=== PATIENT | female | born 1940 | race Caucasian/White ===

== ENCOUNTER 2021-04-23 10:40 | Day surgery (SDC) | payer MEDICARE ==
[~2021-04-23] VITALS: Ht 167.6 cm; Wt 92.0 kg
[2021-04-23 11:00] VITALS: BP 157/76
[2021-04-23] MEDS ORDERED: ATEN-27 PO (11:35)
[2021-04-23] MEDS ORDERED: PANT-47 PO (11:36)
[2021-04-23] MEDS ORDERED: PARO30TA4 PO (11:38)
[2021-04-23] MEDS ORDERED: MONT-40 PO (11:38)
[2021-04-23] MEDS ORDERED: FURO-150 PO (11:39)
[2021-04-23] MEDS ORDERED: ASPI81TA96 PO (11:40)
[2021-04-23] MEDS ORDERED: LISI20TA28 PO (11:41)
[2021-04-23] MEDS ORDERED: IRON-6 PO (11:41)
[2021-04-23] MEDS ORDERED: ATOR40TA7 PO (11:42)
[2021-04-23] MEDS ORDERED: ESOM40CA49 PO (11:43)
[2021-04-23] MEDS ORDERED: CLOP75TA15 PO (11:43)
[2021-04-23] MEDS ORDERED: OMEG10006 PO (11:44)
[2021-04-23] MEDS ORDERED: CHOL500050 PO (11:47)
[2021-04-23] MEDS ORDERED: MULT-1141 PO (11:47)
[2021-04-23] MEDS ORDERED: ZOLP5TAB2 PO (11:48)
[2021-04-23] MEDS ORDERED: MIDAZolam 1 MG/ML 5ML VIAL ONE (12:46)
[2021-04-23] MEDS ORDERED: fentaNYL/PF 50MCG/1 ML 2ML syringe ONE (12:46)
[2021-04-23 13:10] VITALS: BP 151/75
[2021-04-23 13:20] VITALS: BP 142/63
[2021-04-23 13:30] VITALS: BP 137/59
[2021-04-23 13:40] VITALS: BP 135/56
== END 2021-04-23 13:45 | disposition home or self-care (01) ==
LOC: GI LAB 10:40
PROVIDERS: ATTEND Internal Medicine Gastroenterology
DX: R93.3 Abnormal findings on diagnostic imaging of other parts of digestive tract (principal); C20 Malignant neoplasm of rectum; K56.690 Other partial intestinal obstruction; I10 Essential (primary) hypertension; Z95.1 Presence of aortocoronary bypass graft; Z95.5 Presence of coronary angioplasty implant and graft; Z79.82 Long term (current) use of aspirin; Z79.899 Other long term (current) drug therapy
CPT/HCPCS: 45380; 45381; 88305; G0500; J2250; J3010; J7040; Z7512; 45335; 99152; 99153; A4620

== ENCOUNTER 2021-06-22 05:40 | Inpatient (IN) | payer BC ==
[2021-06-18 16:48] LABS: BASOPHILS % (AUTO) 0.6 % (0-1); EOSINOPHILS # (AUTO) 0.1 X10'3 (0-0.9); EOSINOPHILS % (AUTO) 2.4 % (0-6); LYMPHOCYTES # (AUTO) 2.1 X10'3 (1.1-4.8); LYMPHOCYTES % (AUTO) 34.1 % (21-51); MEAN CORPUSCULAR HEMOGLOBIN 31.7 PG (27.0-31.0); MEAN CORPUSCULAR VOLUME 93.4 FL (78-98); MEAN PLATELET VOLUME 10.2 FL (7.4-10.4); MONOCYTES # (AUTO) 0.7 X10'3 (0-0.9); MONOCYTES % (AUTO) 11.8 % (2-12); NEUTROPHILS # (AUTO) 3.1 X10'3 (1.8-7.7); NEUTROPHILS % (AUTO) 51.1 % (42-75); PRE OP HEMATOCRIT 42.2 % (35.0-45.0); PRE OP HEMOGLOBIN 14.3 g/dL (12.0-16.0); PRE OP PLATELET COUNT 246 X10'3 (140-440); RED BLOOD COUNT 4.52 X10'6 (4.20-5.60); RED CELL DISTRIBUTION WIDTH 12.8 % (11.5-14.5)
[2021-06-18 17:15] LABS: PRE OP PROTIME 10.4 SECONDS (9.0-12.0)
[2021-06-18 17:17] LABS: ALBUMIN 3.6 G/DL (3.4-5.0); ALKALINE PHOSPHATASE 82 IU/L (46-116); BLOOD UREA NITROGEN 13 MG/DL (7-18); CHLORIDE 104 MMOL/L (99-107); CREATININE 0.93 MG/DL (0.40-0.90); PRE OP ALT 50 U/L (30-65); PRE OP ANION GAP 11 (8-16); PRE OP AST 32 U/L (10-37); PRE OP BILIRUB, TOTAL 0.3 MG/DL (0.0-1.0); PRE OP GLUCOSE 92 MG/DL (70-104); PRE OP POTASSIUM 4.4 MMOL/L (3.4-5.1); PRE OP SODIUM 142 MMOL/L (135-145); TOTAL CARBON DIOXIDE 27.4 MMOL/L (24-32); TOTAL PROTEIN 7.3 G/DL (6.4-8.2); eGFR 58 ML/MIN
[2021-06-22] VITALS (25 sets, daily range): BP systolic 109–163; BP diastolic 42–76
[~2021-06-22] VITALS: Ht 170.2 cm; Wt 91.6 kg
[~2021-06-22 05:40] MED LIST: ASPI81TA96 PO; ATEN-27 PO; ATOR40TA7 PO; CHOL500050 PO; CLOP75TA15 PO; DOCUMENT DATE & TIME OF BETA-BLOCKER PO ONE; ESOM40CA49 PO; FURO-150 PO; IRON-6 PO; LISI20TA28 PO; MONT-40 PO; MULT-1141 PO; OMEG10006 PO; PARO30TA4 PO; ZOLP5TAB2 PO; albuterol 2.5 MG/3 ML nebule NEB ONE; ceFOXitin 2GM-NS 100mL ADDvant 100 ML IV ONE; famotidine 20mg tablet PO ONE
[2021-06-22] MEDS ORDERED: heparin, porcine 5000 units/ml vial SQ ONE (06:00)
[2021-06-22] MEDS ORDERED: metroNIDAZOLE-Flagyl 500mg/NS 100ml IVPB IV ONE (06:00)
[2021-06-22] MEDS ORDERED: MALTODEXTRIN/FRUCTOSE 0.68 KCAL/ML LIQUID 296ML BOTTLE PO ONE (06:00)
[2021-06-22] MEDS: ringers solution, lacted 1,000 ML IV SCH ×2 (06:35→12:40)
[2021-06-22] MEDS ORDERED: BUPIVAcaine/PF 2.5mg/ml (0.25%) 10ml vial ONE (06:52)
[2021-06-22] MEDS ORDERED: LIDOcaine 1% W/epiNEPHrine 1:100,000 20ml vial ONE (06:52)
[2021-06-22] MEDS ORDERED: povidone-iodine 10% ointment 1 APPLIC APPLIC TP ONE (06:53)
[2021-06-22] MEDS ORDERED: fentaNYL /PF 50mcg/ml 5ml ampule ONE (07:13)
[2021-06-22] MEDS ORDERED: midazolam 1 mg/ML 2ml injection ONE (07:13)
[2021-06-22] MEDS ORDERED: propofol inj 20 ML IV ONE (07:14)
[2021-06-22] MEDS ORDERED: ondansetron/PF 4mg/2ml inj ONE (07:14)
[2021-06-22] MEDS ORDERED: LIDOcaine 2% (20mg/ml) 5ml vial ONE (07:14)
[2021-06-22] MEDS ORDERED: rocuronium 10mg/ml inj IV ONE ×3 (07:14→09:40)
[2021-06-22] MEDS ORDERED: dexamethasone sod phosphate 4mg/ml inj. ONE (07:14)
[2021-06-22] MEDS ORDERED: labetalol 20mg/4ml (5mg/ml) syringe IV PRN (07:25)
[2021-06-22] MEDS ORDERED: hydrALAZINE 20mg/ml inj. IV PRN (07:25)
[2021-06-22] MEDS ORDERED: ringers solution, lacted 1,000 ML IV SCH (07:25)
[2021-06-22] MEDS ORDERED: morphine 2 MG/ML inj. syringe IV PRN (07:25)
[2021-06-22] MEDS ORDERED: fentaNYL/PF 50MCG/1 ML 2ML syringe IV PRN ×2 (07:25)
[2021-06-22] MEDS ORDERED: morphine 4 MG/ML inj SYRINge IV PRN (07:25)
[2021-06-22] MEDS ORDERED: ondansetron/PF 4mg/2ml inj IV PRN ×2 (07:25→11:15)
[2021-06-22] MEDS ORDERED: sevoflurane 250ml liquid IH ONE (07:37)
[2021-06-22] MEDS ORDERED: INDOCYANINE GREEN 25 MG/10 ML VIAL IV ONE (08:56)
[2021-06-22] MEDS ORDERED: albumin (Human) 5% 250ml 250 ML IV ONE (09:16)
[2021-06-22] MEDS ORDERED: hydrALAZINE 20mg/ml inj. IV ONE (09:27)
[2021-06-22] MEDS ORDERED: neostigmine methylsulfate 1 MG/ML 10ml vial ONE (10:50)
[2021-06-22] MEDS ORDERED: glycopyrrolate 0.2mg/ml inj ONE (10:50)
[2021-06-22] MEDS ORDERED: fentaNYL/PF 50MCG/1 ML 2ML syringe ONE (10:54)
[2021-06-22] MEDS ORDERED: CADD PCA waste documentation MC PRN (11:15)
[2021-06-22] MEDS ORDERED: naloxone 0.4 mg/ml inj IV PRN (11:15)
[2021-06-22] MEDS: potassium CL 20mEq in D5-1/2NS 1,000 ML IV SCH (11:15)
--- NOTE | 2021-06-22 11:23 | NUR ---
Received from OR via BED. 20G RIGHT WRIST RUNNING LR, F/C DRAINING CL YELLOW, KAJAL DRAINS X2 DRAINING SERO-SANG, LAP SITE DSG X 5 CDI , accompanied by Anesthesiologist DR AMAYA, DR NI AND [employer] and report given by Anesthesiolgist. Addendum: 06/22/21 at 1145 by Alison Asher RN Amended: Links added.
[2021-06-22] MEDS ORDERED: proCHLORperazine 10 MG/2 ml inj IM ONE (12:10)
[2021-06-22] MEDS ORDERED: scopolamine 1.5mg patch.TD72 (72-hour patch) TD ONE (12:10)
[2021-06-22] MEDS ORDERED: proCHLORperazine 10 MG/2 ml inj IV ONE (12:15)
[2021-06-22] MEDS ORDERED: scopolamine 1mg/72 hr patch TD ONE (12:25)
[2021-06-22] MEDS ORDERED: HYDROmorph./NS 0.2 mg/ml CADD 100 ML IV SCH (13:00)
[2021-06-22] MEDS: HYDROmorph./NS 0.2 mg/ml CADD 100 ML IV SCH ×5 (13:19→23:00)
[2021-06-22] MEDS ORDERED: zolpidem 5mg tablet PO PRN (14:00)
--- NOTE | 2021-06-22 14:12 | NUR ---
Covering for primary RN. patient arrived to the floor. VSS. lap site x3 CDI. KAJAL x2 minimal sanguinous drainage in bulb, dressing CDI. family members at bedside.
[2021-06-22] MEDS: ceFOXitin inj 1,000 MG in normal saline 100ml IV soln 100 ML IV SCH ×2 (16:40→23:27)
--- NOTE | 2021-06-22 17:52 | NUR ---
Pt. refusing second PIV at this time and clinical pharmacology states flagyl and dilaudid combo not tested. Clarifying with pharmacy on phone.
--- NOTE | 2021-06-22 17:55 | NUR ---
Pharmacy states not to administer dilaudid and flagyl together.
--- NOTE | 2021-06-22 17:58 | NUR ---
PAGER ID: [phone] MESSAGE: Vilma Rocha 354C Flagyl and dilaudid CADD pump not compatible. Pt. refusing to have second line placed because "she is hard stick". Nany [id number]
[2021-06-22] MEDS ORDERED: LIDOcaine 2% 10ml TOPICAL JELLY (Urojet) TP ONE (18:40)
--- NOTE | 2021-06-22 18:41 | NUR ---
Dr. Monroy called. States to pause CADD pump, run in Flagyl, then re-supervisor coating CADD pump.
--- NOTE | 2021-06-22 18:43 | NUR ---
Gave report to Adia KINNEY.
--- NOTE | 2021-06-22 18:43 | NUR ---
Patient in room [facility]. I have received report from Nany KINNEY and had the opportunity to ask questions and assume patient care.
[2021-06-22] MEDS: metroNIDAZOLE-Flagyl 500mg/NS 100 ML IV SCH (18:46)
[2021-06-22] MEDS ORDERED: atenolol 25mg tablet PO SCH (20:00)
[2021-06-22] MEDS: docusate sod 100mg capsule PO SCH (20:18)
[2021-06-22] MEDS: pantoprazole 40mg Tablet.DR PO SCH (20:19)
[2021-06-22] MEDS: heparin, porcine 5000 units/ml vial SQ SCH (20:19)
[2021-06-22] MEDS: atorvastatin 20mg tablet PO SCH (20:19)
[2021-06-22] MEDS ORDERED: atenolol 25mg tablet PO ONE (20:50)
[2021-06-22] MEDS ORDERED: lisinopril 20mg tablet PO SCH (21:00)
[2021-06-22] MEDS ORDERED: clopidogrel 75mg tablet PO SCH (21:00)
[2021-06-23] VITALS: BP_SYST 106; BP_SYST 99; BP_DIAS 35; BP_DIAS 44
[2021-06-23] MEDS: HYDROmorph./NS 0.2 mg/ml CADD 100 ML IV SCH ×12 (01:00→23:00)
[2021-06-23] MEDS: metroNIDAZOLE-Flagyl 500mg/NS 100 ML IV SCH ×3 (01:02→17:25)
[2021-06-23] MEDS: potassium CL 20mEq in D5-1/2NS 1,000 ML IV SCH ×3 (01:02→21:48)
[2021-06-23 04:00] VITALS: BP 97/46
[2021-06-23 06:28] LABS: ALBUMIN 3.1 G/DL (3.4-5.0); ANION GAP 9 (8-16); BLOOD UREA NITROGEN 16 MG/DL (7-18); C-REACTIVE PROTEIN 0.81 MG/DL (0.0-0.5); CALCIUM 8.1 MG/DL (8.5-10.1); CHLORIDE 107 MMOL/L (99-107); CREATININE 1.23 MG/DL (0.40-0.90); GLUCOSE 116 MG/DL (70-104); SODIUM 144 MMOL/L (135-145); TOTAL CARBON DIOXIDE 27.7 MMOL/L (24-32); eGFR 42 ML/MIN
[2021-06-23 06:32] LABS: POTASSIUM 5.1 MMOL/L (3.5-5.1)
[2021-06-23 06:36] LABS: BASOPHILS % (AUTO) 0.2 % (0-1); EOSINOPHILS % (AUTO) 0 % (0-6); HEMATOCRIT 36.5 % (35.0-45.0); HEMOGLOBIN 12.5 g/dl (12.0-16.0); LYMPHOCYTES % (AUTO) 18.4 % (21-51); MEAN CORPUSCULAR HGB CONC 34.3 g/dL (33.0-36.5); MEAN CORPUSCULAR VOLUME 93.1 FL (78-98); MEAN PLATELET VOLUME 10.5 FL (7.4-10.4); MONOCYTES # (AUTO) 1.2 X10'3 (0-0.9); MONOCYTES % (AUTO) 11.5 % (2-12); NEUTROPHILS # (AUTO) 7.4 X10'3 (1.8-7.7); NEUTROPHILS % (AUTO) 69.9 % (42-75); PLATELET COUNT 252 X10'3 (140-440); RED BLOOD COUNT 3.92 X10'6 (4.20-5.60); RED CELL DISTRIBUTION WIDTH 12.9 % (11.5-14.5); WHITE BLOOD COUNT 10.6 X10'3 (4.5-11.0)
--- NOTE | 2021-06-23 06:36 | NUR ---
Problems reprioritized. Patient report given, questions answered & plan of care reviewed with Nany KINNEY.
[2021-06-23 07:00] VITALS: BP 109/44
[2021-06-23] MEDS: PARoxetine 10mg tablet PO SCH (09:43)
[2021-06-23] MEDS: docusate sod 100mg capsule PO SCH ×2 (09:43→20:29)
[2021-06-23] MEDS: aspirin 81mg tab.chew PO SCH (09:43)
[2021-06-23] MEDS: furosemide 20MG tablet PO SCH (09:43)
[2021-06-23] MEDS: montelukast 10mg tablet PO SCH (09:44)
[2021-06-23] MEDS: heparin, porcine 5000 units/ml vial SQ SCH ×2 (09:44→20:27)
[2021-06-23] MEDS: atenolol 25mg tablet PO SCH ×2 (09:48→20:28)
[2021-06-23 11:00] VITALS: BP 104/42
--- NOTE | 2021-06-23 18:34 | NUR ---
GAVE REPORT TO LEO KINNEY.
[2021-06-23] MEDS: acetaminophen 325mg tablet PO SCH (18:52)
[2021-06-23 19:00] VITALS: BP 124/54
[2021-06-23] MEDS: atorvastatin 20mg tablet PO SCH (20:29)
[2021-06-23] MEDS: pantoprazole 40mg Tablet.DR PO SCH (20:29)
[2021-06-24] VITALS: BP 106/35
[2021-06-24] MEDS: HYDROmorph./NS 0.2 mg/ml CADD 100 ML IV SCH ×8 (01:00→15:00)
[2021-06-24] MEDS: acetaminophen 325mg tablet PO SCH ×3 (01:19→14:39)
--- NOTE | 2021-06-24 06:10 | NUR ---
Problems reprioritized. Patient report given, questions answered & plan of care reviewed with Nany KINNEY.
[2021-06-24 07:04] LABS: ANION GAP 10 (8-16); BLOOD UREA NITROGEN 21 MG/DL (7-18); BUN/CREATININE RATIO 15.3 (6.6-38.0); CALCIUM 8.4 MG/DL (8.5-10.1); CHLORIDE 105 MMOL/L (99-107); CREATININE 1.37 MG/DL (0.40-0.90); GLUCOSE 123 MG/DL (70-104); POTASSIUM 4.3 MMOL/L (3.5-5.1); SODIUM 140 MMOL/L (135-145); TOTAL CARBON DIOXIDE 25.4 MMOL/L (24-32); eGFR 37 ML/MIN
[2021-06-24 07:05] LABS: BASOPHILS % (AUTO) 0.3 % (0-1); EOSINOPHILS % (AUTO) 0.4 % (0-6); HEMATOCRIT 34.5 % (35.0-45.0); HEMOGLOBIN 11.8 g/dl (12.0-16.0); LYMPHOCYTES # (AUTO) 1.7 X10'3 (1.1-4.8); LYMPHOCYTES % (AUTO) 19.6 % (21-51); MEAN CORPUSCULAR HEMOGLOBIN 31.9 PG (27.0-31.0); MEAN CORPUSCULAR HGB CONC 34.2 g/dL (33.0-36.5); MEAN CORPUSCULAR VOLUME 93.3 FL (78-98); MONOCYTES # (AUTO) 1.1 X10'3 (0-0.9); NEUTROPHILS # (AUTO) 5.9 X10'3 (1.8-7.7); NEUTROPHILS % (AUTO) 66.7 % (42-75); PLATELET COUNT 216 X10'3 (140-440); WHITE BLOOD COUNT 8.8 X10'3 (4.5-11.0)
--- NOTE | 2021-06-24 07:10 | NUR ---
PAGER ID: [phone] MESSAGE: RYLAND LAZARO 354C PT C/O NAUSEA AND DIZZINESS/WEAKNESS. APICAL HR IRREGULAR 59. BP 125/52. HOLD ATENOLOL? LASIX? EKG? RICH [id number]
[2021-06-24] MEDS: docusate sod 100mg capsule PO SCH ×2 (07:36→21:13)
[2021-06-24] MEDS: PARoxetine 10mg tablet PO SCH (07:36)
[2021-06-24] MEDS: aspirin 81mg tab.chew PO SCH (07:36)
[2021-06-24] MEDS: montelukast 10mg tablet PO SCH (07:36)
[2021-06-24] MEDS: furosemide 20MG tablet PO SCH (07:36)
[2021-06-24] MEDS: heparin, porcine 5000 units/ml vial SQ SCH ×2 (07:37→21:14)
[2021-06-24] MEDS: atenolol 25mg tablet PO SCH ×2 (07:37→21:14)
[2021-06-24 08:00] VITALS: BP 132/70
[2021-06-24 13:11] VITALS: BP 125/60
[2021-06-24] MEDS ORDERED: albumin (human) 25% 100 ML IV solution IV ONE (15:15)
[2021-06-24] MEDS ORDERED: acetaminophen 325mg tablet PO PRN (15:35)
[2021-06-24 18:00] VITALS: BP 146/73
[2021-06-24] MEDS: NUT.TX.IMPAIRED DIGEST FXN (Ensure Clear) 237 ML PO SCH (18:00)
[2021-06-24] MEDS ORDERED: NUT.TX.IMPAIRED DIGEST FXN (Ensure Clear) 237 ML PO SCH (18:00)
--- NOTE | 2021-06-24 18:23 | NUR ---
Gave report to Zachary KINNEY.
[2021-06-24] MEDS: HYDROcodone/acetaminophen 5mg/325mg tablet PO PRN (19:18)
[2021-06-24] MEDS ORDERED: furosemide 20MG tablet PO SCH (20:00)
[2021-06-24] MEDS ORDERED: LORazepam 1 MG tablet PO PRN (20:05)
[2021-06-24] MEDS ORDERED: morphine 2 MG/ML inj. syringe IV PRN (20:05)
[2021-06-24] MEDS: pantoprazole 40mg Tablet.DR PO SCH (21:00)
[2021-06-24] MEDS: atorvastatin 20mg tablet PO SCH (21:15)
[2021-06-25] VITALS: BP 139/57
[2021-06-25] MEDS: HYDROcodone/acetaminophen 5mg/325mg tablet PO PRN (05:00)
--- NOTE | 2021-06-25 06:54 | NUR ---
Patient in room [facility]. I have received report from brenton mtz and had the opportunity to ask questions and assume patient care.
[2021-06-25 06:55] LABS: BASOPHILS # (AUTO) 0.1 X10'3 (0-0.2); BASOPHILS % (AUTO) 0.7 % (0-1); EOSINOPHILS % (AUTO) 0.1 % (0-6); HEMATOCRIT 33.7 % (35.0-45.0); HEMOGLOBIN 11.6 g/dl (12.0-16.0); LYMPHOCYTES # (AUTO) 1.9 X10'3 (1.1-4.8); LYMPHOCYTES % (AUTO) 19.7 % (21-51); MEAN CORPUSCULAR HEMOGLOBIN 31.8 PG (27.0-31.0); MEAN CORPUSCULAR HGB CONC 34.4 g/dL (33.0-36.5); MEAN CORPUSCULAR VOLUME 92.2 FL (78-98); MEAN PLATELET VOLUME 10.6 FL (7.4-10.4); MONOCYTES # (AUTO) 0.8 X10'3 (0-0.9); MONOCYTES % (AUTO) 8.5 % (2-12); NEUTROPHILS # (AUTO) 6.8 X10'3 (1.8-7.7); PLATELET COUNT 202 X10'3 (140-440); RED BLOOD COUNT 3.65 X10'6 (4.20-5.60); RED CELL DISTRIBUTION WIDTH 12.7 % (11.5-14.5); WHITE BLOOD COUNT 9.5 X10'3 (4.5-11.0)
--- NOTE | 2021-06-25 07:03 | NUR ---
Problems reprioritized. Patient report given, questions answered & plan of care reviewed with Roxanne. Addendum: 06/25/21 at 0704 by Pratik Madera RN Amended: Links added.
[2021-06-25 07:12] VITALS: BP 102/51
[2021-06-25 07:13] LABS: ALBUMIN 3.2 G/DL (3.4-5.0); ANION GAP 9 (8-16); BLOOD UREA NITROGEN 16 MG/DL (7-18); BUN/CREATININE RATIO 18.2 (6.6-38.0); C-REACTIVE PROTEIN 10.57 MG/DL (0.0-0.5); CALCIUM 8.5 MG/DL (8.5-10.1); CHLORIDE 109 MMOL/L (99-107); CREATININE 0.88 MG/DL (0.40-0.90); GLUCOSE 128 MG/DL (70-104); POTASSIUM 4.2 MMOL/L (3.5-5.1); SODIUM 145 MMOL/L (135-145); TOTAL CARBON DIOXIDE 26.9 MMOL/L (24-32); eGFR 62 ML/MIN
[2021-06-25] MEDS: atenolol 25mg tablet PO SCH ×2 (08:00→20:25)
[2021-06-25] MEDS: aspirin 81mg tab.chew PO SCH (08:50)
[2021-06-25] MEDS: docusate sod 100mg capsule PO SCH ×2 (08:50→20:23)
[2021-06-25] MEDS: montelukast 10mg tablet PO SCH (08:50)
[2021-06-25] MEDS: PARoxetine 10mg tablet PO SCH (08:50)
[2021-06-25] MEDS: heparin, porcine 5000 units/ml vial SQ SCH ×2 (08:51→20:24)
[2021-06-25] MEDS: NUT.TX.IMPAIRED DIGEST FXN (Ensure Clear) 237 ML PO SCH ×3 (08:55→18:03)
[2021-06-25 11:00] VITALS: BP 114/53
--- NOTE | 2021-06-25 11:06 | NUR ---
Noted that pt was on clear liquid diet per preference, s/p laparoscopic low anterior colon resection. also had Ensure Clear TID ordered. Pt was advanced to Low fiber diet though it has been cancelled. D/w RN adding low fiber diet back if dev w/ . D/w Pt at bedside who states she likes broth and tea w/ her meals, also prefers ensure clear. Food preferences d/w dietary. Will continue to monitor PO trends and appropriateness for ONS Addendum: 06/25/21 at [address] Amended: Links added.
--- NOTE | 2021-06-25 18:03 | NUR ---
Problems reprioritized. Patient report given, questions answered & plan of care reviewed with TANJA KINNEY.
--- NOTE | 2021-06-25 18:12 | NUR ---
Problems reprioritized. Patient report given, questions answered & plan of care reviewed with KARLA KINNEY. Addendum: 06/25/21 at 1813 by Saniya Roldan RN DISREGARD NOTE, [place] KINNEY
[2021-06-25 19:00] VITALS: BP 137/56
[2021-06-25] MEDS: atorvastatin 20mg tablet PO SCH (20:23)
[2021-06-25] MEDS: pantoprazole 40mg Tablet.DR PO SCH (20:23)
[2021-06-26] MEDS: HYDROcodone/acetaminophen 5mg/325mg tablet PO PRN (03:53)
--- NOTE | 2021-06-26 06:12 | NUR ---
Problems reprioritized. Patient report given, questions answered & plan of care reviewed with TERA. Addendum: 06/26/21 at 0612 by Pratik Madera RN Amended: Links added.
[2021-06-26 06:16] LABS: BASOPHILS # (AUTO) 0.1 X10'3 (0-0.2); BASOPHILS % (AUTO) 0.9 % (0-1); EOSINOPHILS # (AUTO) 0.2 X10'3 (0-0.9); EOSINOPHILS % (AUTO) 1.9 % (0-6); HEMATOCRIT 35.3 % (35.0-45.0); HEMOGLOBIN 12.1 g/dl (12.0-16.0); LYMPHOCYTES # (AUTO) 1.2 X10'3 (1.1-4.8); LYMPHOCYTES % (AUTO) 15.3 % (21-51); MEAN CORPUSCULAR HEMOGLOBIN 31.9 PG (27.0-31.0); MEAN CORPUSCULAR HGB CONC 34.2 g/dL (33.0-36.5); MEAN CORPUSCULAR VOLUME 93.2 FL (78-98); MEAN PLATELET VOLUME 10.8 FL (7.4-10.4); MONOCYTES # (AUTO) 0.8 X10'3 (0-0.9); MONOCYTES % (AUTO) 9.7 % (2-12); NEUTROPHILS # (AUTO) 5.7 X10'3 (1.8-7.7); NEUTROPHILS % (AUTO) 72.2 % (42-75); PLATELET COUNT 196 X10'3 (140-440); RED BLOOD COUNT 3.79 X10'6 (4.20-5.60); RED CELL DISTRIBUTION WIDTH 12.7 % (11.5-14.5); WHITE BLOOD COUNT 7.8 X10'3 (4.5-11.0)
--- NOTE | 2021-06-26 06:24 | NUR ---
Problems reprioritized. Patient report given, questions answered & plan of care reviewed with TERA. Addendum: 06/26/21 at 0625 by Pratik Madera RN Amended: Links added.
--- NOTE | 2021-06-26 06:31 | NUR ---
Patient in room [facility]. I have received report from TANJA KINNEY and had the opportunity to ask questions and assume patient care.
[2021-06-26 06:57] LABS: ANION GAP 9 (8-16); BLOOD UREA NITROGEN 15 MG/DL (7-18); BUN/CREATININE RATIO 19.5 (6.6-38.0); CALCIUM 8.4 MG/DL (8.5-10.1); CHLORIDE 108 MMOL/L (99-107); CREATININE 0.77 MG/DL (0.40-0.90); GLUCOSE 110 MG/DL (70-104); POTASSIUM 3.9 MMOL/L (3.5-5.1); SODIUM 143 MMOL/L (135-145); TOTAL CARBON DIOXIDE 25.6 MMOL/L (24-32); eGFR 72 ML/MIN
[2021-06-26] MEDS: docusate sod 100mg capsule PO SCH (08:01)
[2021-06-26] MEDS: atenolol 25mg tablet PO SCH (08:01)
[2021-06-26] MEDS: montelukast 10mg tablet PO SCH (08:01)
[2021-06-26] MEDS: heparin, porcine 5000 units/ml vial SQ SCH (08:01)
[2021-06-26] MEDS: PARoxetine 10mg tablet PO SCH (08:01)
[2021-06-26] MEDS: aspirin 81mg tab.chew PO SCH (08:01)
[2021-06-26] MEDS: NUT.TX.IMPAIRED DIGEST FXN (Ensure Clear) 237 ML PO SCH ×2 (08:04→13:11)
[2021-06-26 08:12] LABS: LARGE PLATELETS FEW; PLATELET ESTIMATE NORMAL
[2021-06-26 08:43] VITALS: BP 132/63
[2021-06-26] MEDS: polyethylene glycol 3350 17gm powd pack PO SCH ×2 (10:25→13:00)
[2021-06-26] MEDS ORDERED: ACET-3067 PO (12:31)
[2021-06-26] MEDS ORDERED: polyethylene glycol 3350 17gm powd pack PO SCH (13:00)
[2021-06-26 13:04] VITALS: BP 126/54
[2021-06-26] MEDS ORDERED: acetaminophen w/codeine (30MG) #3 tablet PO PRN (13:30)
[2021-06-26] MEDS ORDERED: magnesium hydroxide 30ml (MOM) UD suspension PO ONE (14:55)
--- NOTE | 2021-06-26 14:56 | NUR ---
NOTIFIED DR NI THAT PT HAS NOT YET HAD BM. GOT ORDER FOR ONE TIME MOM 30 ML. STATES PT CAN DC HOME AFTER DOSE. WANTS PT TO PAY CLOSE ATTENTION AT HOME TO BM AND RETURN IF THERE ARE ANY PROBLEMS. FOLLOW UP WITH HIM IN 2 WEEKS.
--- NOTE | 2021-06-26 15:15 | NUR ---
PT DISCHARGED IN STABLE CONDITION. LEFT FACILITY IN PRIVATE VEHICLE WITH FAMILY. IV DC [facility] INTACT. FOLLOW UP INSTRUCTIONS GIVEN, ALL QUESTIONS ANSWERED. ALL BELONGINGS IN HAND. Addendum: 06/26/21 at 1517 by Saniya Roldan RN Amended: Links added.
--- NOTE | 2021-06-26 16:15 | NUR ---
PT DISCHARGED IN STABLE CONDITION. LEFT FACILITY IN PRIVATE VEHICLE WITH SISTER. IV DC [facility] INTACT. FOLLOW UP INSTRUCTION GIVEN, ALL QUESTIONS ANSWERED. ALL BELONGINGS IN HAND. Addendum: 06/26/21 at 1735 by Saniya Roldan RN Amended: Links added.
[2021-06-26] MEDS ORDERED: psyllium seed 3.4 gm packet PO SCH (21:00)
== END 2021-06-26 16:12 | disposition home or self-care (01) | DRG 332 ==
LOC: PAS IN 05:40 → SUR 3N 14:08
PROVIDERS: ADMIT Colon & Rectal Surgery; ATTEND Colon & Rectal Surgery
PROC: 8E0W4CZ Robotic Assisted Procedure of Trunk Region, Percutaneous Endoscopic Approach (ICD-10-PCS; 2021-06-22)
PROC: 4A1BXSH Monitoring of Gastrointestinal Vascular Perfusion using Indocyanine Green Dye, External Approach (ICD-10-PCS; 2021-06-22)
PROC: 0DTP4ZZ Resection of Rectum, Percutaneous Endoscopic Approach (ICD-10-PCS; principal; 2021-06-22 07:37)
DX: C20 Malignant neoplasm of rectum (principal); N17.0 Acute kidney failure with tubular necrosis; E78.5 Hyperlipidemia, unspecified; F41.1 Generalized anxiety disorder; I10 Essential (primary) hypertension; F32.A Depression, unspecified; I25.10 Atherosclerotic heart disease of native coronary artery without angina pectoris; I25.2 Old myocardial infarction; Z85.038 Personal history of other malignant neoplasm of large intestine; Z87.11 Personal history of peptic ulcer disease; Z90.711 Acquired absence of uterus with remaining cervical stump; Z95.1 Presence of aortocoronary bypass graft; Z95.5 Presence of coronary angioplasty implant and graft; Z90.49 Acquired absence of other specified parts of digestive tract
CPT/HCPCS: 36415; 71046; 80048; 80053; 82948; 85008; 85025; 85610; 85730; 86140; 86885; 86900; 86901; 87081; 88305; 88309; 93005; 97116; 97161; 97530; A4340; A4355; A4402; A4618; A6258; A6402; A6449; A7000; C1758; G0378; J0360; J0694; J0780; J1100; J1170; J1644; J2250; J2405; J2704; J2710; J3010; J3480; J3490; J7030; J7120; P9045; P9047; U0003; U0005